=== PATIENT | female | born 1950 | race African-American/Black ===

== ENCOUNTER 2020-07-10 16:29 | Emergency (ER) | payer OTHER ==
[~2020-07-10] VITALS: Ht 167.6 cm; Wt 98.9 kg
[2020-07-10 17:15] LABS: HEMATOCRIT 30.8 % (37.0-47.0); HEMOGLOBIN 10.2 gm/dL (12.0-15.0); MCH 28.5 pg (26.0-34.0); MCHC 33.3 g/dL (28.0-37.0); MCV 85.6 fL (80.0-100.0); RBC 3.59 mil/uL (4.20-5.00); RDW 16.9 % (10.5-14.5); WBC 2.7 thou/uL (4.0-11.0)
[2020-07-10 18:39] LABS: APTT 31.6 Seconds (24.5-32.8); INR 1.2
[2020-07-10 19:59] VITALS: BP 159/62
== END 2020-07-10 21:53 | disposition home or self-care (01) ==
LOC: ER 16:29
PROVIDERS: Emergency Medicine
DX: T82.838A Hemorrhage due to vascular prosthetic devices, implants and grafts, initial encounter (principal); E66.01 Morbid (severe) obesity due to excess calories; Y92.89 Other specified places as the place of occurrence of the external cause

== ENCOUNTER 2020-07-28 09:40 | Emergency (ER) | payer OTHER ==
[~2020-07-28] VITALS: Ht 162.6 cm; Wt 99.8 kg
[2020-07-28 09:41] VITALS: BP 112/49
[2020-07-28 11:06] LABS: BE(vivo) 1.3 mmol/L (-2 to +3); HCO3 28.2 mmol/L (22.0-26.0); PCO2 VENOUS 57.1 mmHg (41.0-51.0); PO2 VENOUS 43.9 mmHg (35.0-45.0)
[2020-07-28 14:41] VITALS: BP 105/51
--- NOTE | 2020-07-28 16:40 | 2DMMODE ---
[address] [address] 2 D/M-MODE ECHOCARDIOGRAM Name: YUSUF BERG Room #: 170-11 ADM IN M.R.#: [id number] Admission: 07/28/20 Attend Phys: Yonis Cooper MD Discharge: Date of : 54 Report #: [id number] THIS REPORT FOR: cc: Lukas Jimenes MD, Ramilo MD Lammoglia, Francisco J. MD ~ ADDENDUM APPROVED REPORT Study performed: 07/28/2020 13:06:36 EXAM: Limited 2D, Doppler, and color-flow Echocardiogram Patient Location: ER Room #: 11 Status: routine BSA: 2.04 HR: 72 bpm BP: 101/45 mmHg Rhythm: NSR Other Information Study Quality: Good Indications Limited echo for pericardial effusion. Short of breath, hypoxia. Tricuspid Valve TR Peak Stiven.: 3.16 m/s RAP Estimate: 15.00 mmHg TR Peak Gr.: 40.00 mmHg PA Pressure: 55.00 mmHg Left Ventricle The left ventricle is normal size. There is normal LV segmental wall motion. Left ventricular systolic function is normal. LVEF is 55%. Right Ventricle Right ventricle is mildly hypokinetic. Atria Left atrium is dilated. Right atrium is dilated. Aortic Valve Aortic valve is moderately calcified. Mild aortic regurgitation. [address] [place] [address] 2 D/M-MODE ECHOCARDIOGRAM Name: YUSUF BERG Room #: 170-11 ADM IN M.R.#: [id number] Admission: 07/28/20 Attend Phys: Yonis Cooper MD Discharge: Date of : 54 Report #: [id number] Mitral Valve The mitral valve is normal in structure. Mild mitral annular calcification. Mild mitral regurgitation. Tricuspid Valve The tricuspid valve is normal in structure. Moderate tricuspid regurgitation. Estimated PAP is 55mmHg. Great Vessels IVC is dilated and collapses <50% with inspiration. Pericardium Large circumfrential pericardial effusion. With suggestion of mild diastolic RV collapse, Clinical correlation suggested Pleural effusion noted. <Conclusion> The left ventricle is normal size. LVEF is 55%. Right ventricle is mildly hypokinetic. Left atrium is dilated. Right atrium is dilated. Aortic valve is moderately calcified. Mild aortic regurgitation. The mitral valve is normal in structure. Mild mitral annular calcification. Mild mitral regurgitation. The tricuspid valve is normal in structure. Moderate tricuspid regurgitation. Estimated PAP is 55mmHg. Large circumfrential pericardial effusion. With suggestion of mild diastolic RV collapse Pleural effusion noted. <ELECTRONICALLY SIGNED> By: Kirk Shafer MD 07/28/20 1639 1639 1639 Kirk Shafer MD /INF
--- NOTE | 2020-07-28 16:41 | EKG ---
[facility] [place] [address] ELECTROCARDIOGRAM REPORT Name: YUSUF BERG Room #: 170-11 ADM IN M.R.#: [id number] Admission: 07/28/20 Attend Phys: Yonis Cooper MD Discharge: Date of : 54 Report #: [id number] THIS REPORT FOR: cc: Lukas Jimenes MD, Ramilo MD Lundgren,Zechariah Maher MD [facility] ~ THIS REPORT FOR: //name// [facility] ED Test Date: 2020-07-28 Test Time: 15:01:45 Pat Name: YUSUF BERG Department: Room: [facility] Gender: F Signal Wirer: JULIO CESAR : 1950 Requested By: Jayme Burnett Order Number: [id number] MD: Zechariah Rey Measurements Intervals [place] Rate: 75 P: 16 [place]: 194 QRS: 52 QRSD: 82 T: 208 QT: 492 QTc: 550 Interpretive Statements Sinus rhythm Nonspecific ST and T wave abnormality Prolonged QT interval No previous ECG available for comparison Electronically Signed On 07-28-2020 16:41:15 CDT by Zechariah Rey [email or web address] <ELECTRONICALLY SIGNED> By: Zechariah Rey MD, FACC 07/28/20 1641 1501 1501 Zechariah Rye MD, [facility] /EPI
== END 2020-07-28 17:15 ==
LOC: ER 09:40 → EROBS 14:08
PROVIDERS: Emergency Medicine
DX: I31.3 Pericardial effusion (noninflammatory) (principal); R09.02 Hypoxemia; F03.90 Unspecified dementia, unspecified severity, without behavioral disturbance, psychotic disturbance, mood disturbance, and anxiety; D64.9 Anemia, unspecified; E11.22 Type 2 diabetes mellitus with diabetic chronic kidney disease; I13.2 Hypertensive heart and chronic kidney disease with heart failure and with stage 5 chronic kidney disease, or end stage renal disease; I50.9 Heart failure, unspecified; N18.6 End stage renal disease; E78.5 Hyperlipidemia, unspecified; K21.9 Gastro-esophageal reflux disease without esophagitis; F32.9 Major depressive disorder, single episode, unspecified; Z99.2 Dependence on renal dialysis

== ENCOUNTER 2020-07-28 19:37 | Emergency (ER) | payer OTHER ==
[~2020-07-28] VITALS: Ht 172.7 cm; Wt 90.7 kg
== END 2020-07-28 19:56 ==
LOC: ER 19:37
DX: I46.9 Cardiac arrest, cause unspecified (principal); N18.6 End stage renal disease; Z99.2 Dependence on renal dialysis